=== PATIENT | female | born 1960 | race Caucasian/White ===

== ENCOUNTER 2019-07-09 00:40 | Emergency (ER) | payer MEDICAID, OTHER ==
[~2019-07-09] VITALS: Ht 154.9 cm; Wt 86.2 kg
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
[2019-07-09] MEDS ORDERED: LIDOCAINE 1%-EPI 1:100,000 20 ML VIAL ONE (01:06)
--- NOTE | 2019-07-09 01:19 | NUR ---
AT THE BED SIDE FOR SUTURING
--- NOTE | 2019-07-09 01:40 | NUR ---
PT RECEIVED 4 SUTURES BY MD AT THE BED SIDE. PT TOLERATED THE PROCEDURE WELL. NO BLEEDING NOTED. AREA WAS CLEANED, TAP DRIED AND COVERED W. DD. Patient discharged to home in stable condition. Written and verbal after care instructions given. Patient verbalizes understanding of instruction.
[2019-07-09 01:41] VITALS: BP 101/58
== END 2019-07-09 01:42 | disposition home or self-care (01) ==
LOC: ER 00:43
DX: S81.811A Laceration without foreign body, right lower leg, initial encounter (principal); W18.09XA Striking against other object with subsequent fall, initial encounter; Y93.89 Activity, other specified; Y92.89 Other specified places as the place of occurrence of the external cause; Y99.0 Civilian activity done for income or pay
CPT/HCPCS: 12001; 99283; J3490